=== PATIENT | female | born 1980 | race Caucasian/White ===

== ENCOUNTER 2018-10-08 23:47 | Emergency (ER) | payer OTHER ==
[~2018-10-08] VITALS: Ht 165.1 cm; Wt 131.1 kg
[2018-10-09] MEDS ORDERED: KETO10TA2 PO (02:49)
[2018-10-09] MEDS ORDERED: NORFLEX100MG PO (02:49)
== END 2018-10-09 02:57 | disposition home or self-care (01) ==
LOC: ER 23:47
DX: S40.011A Contusion of right shoulder, initial encounter (principal); S20.211A Contusion of right front wall of thorax, initial encounter; S70.01XA Contusion of right hip, initial encounter; S19.89XA Other specified injuries of other specified part of neck, initial encounter; W16.212A Fall in (into) filled bathtub causing other injury, initial encounter; Y93.89 Activity, other specified; Y92.89 Other specified places as the place of occurrence of the external cause; Y99.8 Other external cause status